=== PATIENT | female | born 1960 | race Caucasian/White ===

== ENCOUNTER 2022-04-10 10:45 | Outpatient (RCR) | payer SELFPAY | END 2023-03-25 11:14 | disposition home or self-care (01) | PROVIDERS: PCP Family Medicine; Visit Provider Orthopaedic Surgery | DX: M25.562 Pain in left knee (principal); Z51.89 Encounter for other specified aftercare | CPT/HCPCS: 97110; 97140 ==

== ENCOUNTER 2022-06-10 08:52 | Day surgery (SDC) | payer SELFPAY ==
[2022-06-10] VITALS (22 sets, daily range): BP systolic 97–171; BP diastolic 52–96; PULSE 48–71; RESP 16–20; TEMP 36.1–36.8; O2SAT 91–99; BMI 37.4
[2022-06-10] MEDS: CELECOXIB 200 MG CAPSULE PO ×2 (09:30→20:58)
[2022-06-10] MEDS: ACETAMINOPHEN 500 MG TABLET 1000 MG PO ×3 (09:30→23:45)
[2022-06-10] MEDS: OXYCODONE (CR) 10 MG TAB.ER.12H PO (09:30)
[2022-06-10] MEDS: LACTATED RINGERS 1000 ML 1,000 ML 100 ML IV ×2 (09:40→12:37)
[2022-06-10] MEDS: SODIUM CHLORIDE 0.9 % (FLUSH) 10 ML SYRINGE IVF (09:40)
[2022-06-10] MEDS: ETHYL CHLORIDE 1 APPLICATION 1 APPLIC TOPICAL (09:40)
--- NOTE | 2022-06-10 09:59 | SUR.PREOP ---
TIME?OUT:?right knee, 10:00 PT/RN/MDA?VERIFICATION?OF?SURGICAL?SITE,?PROCEDURE,?AND?CONSENT OBTAINED?PRIOR?TO?INVASIVE?PROCEDURE.
[2022-06-10] MEDS: fentaNYL 100 MCG/2 ML inj IVP (10:04)
[2022-06-10] MEDS: MIDAZOLAM HCL 1 MG/ML inj IVP (10:04)
--- NOTE | 2022-06-10 11:33 | CRLHL7_ITS ---
For Patients: As a result of the Cures Act, medical imaging exams and procedure reports are released immediately into your electronic medical record. You may view this report before your referring provider. If you have questions, please contact your health care provider. INDICATION: Postoperative total knee arthroplasty, Post operative total knee arthroplasty TECHNIQUE: Knee radiograph 2 views right COMPARISON: None FINDINGS: Bone: No acute fractures or aggressive bone lesions are identified. Joint: The patient is status post a total knee arthroplasty with patellar resurfacing. No significant knee effusion is seen. Soft tissue: Anterior skin, subcutaneous gas and joint gas are present from recent surgery. No radiopaque foreign bodies are seen. IMPRESSION: 1. There is an unremarkable postoperative appearance of the knee arthroplasty. Dictated by: Nando Godinez MD @ 06/10/2022 14:21:15 (Electronically Signed)
--- NOTE | 2022-06-10 11:35 | P.ORPRC_ITS ---
Procedure Note Date of procedure: 06/10/22 Procedure: SURGEON: Jorge Otoole MD RADIO ADJUSTER: Patria Schroeder PA-C PREOPERATIVE DIAGNOSIS: Right knee osteoarthritis POSTOPERATIVE DIAGNOSIS: Right knee osteoarthritis NAME OF OPERATION: Right total knee arthroplasty ANESTHESIA: Spinal ESTIMATED BLOOD LOSS: 0 mL COMPLICATIONS: None SPECIMENS: None DRAINS: None PREOPERATIVE ANTIBIOTICS: Ancef 2 grams IMPLANTS: 1. J&J Attune #6 posterior stabilized femur 2. # 5 fixed-bearing tibia 3. #6 posterior stabilized, 5 mm fixed-bearing polyethylene 4. 35 patella INDICATIONS: The patient is a 62-year-old female with a longstanding history of severe, unrelenting right knee pain secondary to end-stage (grade IV) right knee osteoarthritis. Despite appropriate nonoperative management, including activity modification, anti-inflammatories, oclc-[id number] pain medication, bracing, physical therapy, and injections they continue to have pain and disability. Operative intervention was offered. The risks, benefits and expected outcomes were discussed in detail. These included but were not limited to: Infection, bleeding, injury to blood vessel or nerve, venous thromboembolism. All questions were answered to their satisfaction. Use of an senior executive assistant was necessary throughout the case for patient positioning and safety, soft tissue retraction, and closure. PROCEDURE: Spinal anesthesia was administered. The patient was placed supine on the operating table. The senior executive assistant made sure the patient was positioned appropriately. The lower extremity was prepped and draped in the usual sterile fashion. The limb was exsanguinated with the Buddy bandage. The pneumatic tourniquet was inflated to 300 mmHg. A standard anterior incision was made with the knee in flexion. Subcutaneous dissection was sharply taken through fascial layer #1. Full-thickness medial and lateral flaps were elevated. The senior executive assistant retracted the soft tissues and protected them throughout the case. A standard medial parapatellar approach was made. The patella was everted. The infrapatellar fat pad was preserved. The menisci and cruciate ligaments were sharply d?brided. Marginal osteophytes were d?brided with the rongeur. The drill was used to penetrate the femoral canal. The canal was aspirated and irrigated with pulse lavage. The intramedullary femoral guide was placed for a 5-degree valgus cut, removing 10 mm off the distal femur. The saw was used to make the cut. Whitesides line and the trans epicondylar axis were marked. The femoral sizing guide was pinned onto the distal femur. Three degrees of external rotation nicely parallels the transepicondylar axis. Pins were placed for posterior referencing. The four-in-one cutting guide was pinned onto the distal femur. The anterior, posterior, and chamfer cuts were made. The senior executive assistant protected the collateral ligaments. The box cutting guide was pinned. The box cuts were made. The boxed trial was placed and was an excellent fit. Drill holes for the lugs were made. Attention was then turned to the proximal tibia. The extramedullary tibial guide was placed for a neutral varus/valgus cut with 5 degrees of posterior slope, removing 2 mm based off the medial tibial surface. The senior executive assistant protected the collateral ligaments and the neurovascular bundle. The saw was used to make the cut. Trial components were placed. The knee was nicely balanced in both flexion and extension. Rotation of the tibial component was ma tched to the femur in full extension, matched to our tibial cutting pins, and marked with cautery. The trial components were removed. The tray was placed in appropriate rotation, parallel to our tibial cutting pins. It was pinned by the senior executive assistant and the drill and the punch were used. The tray was removed. The punch was used again. We placed a bone plug in the femoral canal. Attention was then turned to the patella. [place] patellar thickness was 19.5 mm. The lobster claw resection guide was used with the 7.5 mm maribel and a, guide used as an extra maribel. The saw was used to make the cut. Drill holes were made by the senior executive assistant. The trial was placed and was an excellent fit. Cancellous surfaces were irrigated with pulse lavage and thoroughly dried by the senior executive assistant. We cemented the tibial component, then the femoral component. A trial spacer was placed. The knee was brought into full extension. We then cemented the patellar component. Excessive cement was removed. The cement was allowed to harden. Any remaining excessive cement was removed with the osteotome. We impacted the 5 mm polyethylene onto the tibial tray. The knee was taken through a range of motion and was found to be nicely balanced in both flexion and extension. The patella tracks centrally. The senior executive assistant did a three minute dilute Betadine solution soak. The senior executive assistant irrigated the wound with 3 liters of normal saline via pulse lavage. The senior executive assistant reapproximated the extensor mechanism with #1 Vicryl in an interrupted [id number] fashion. The senior executive assistant then ran the extensor mechanism with a #1 PDO Stratafix. The senior executive assistant closed the subcutaneous tissues with a 3-0 Stratafix and the skin with a running 3-0 Stratafix in a subcuticular fashion. Glue was used to seal the skin. The senior executive assistant placed a dry dressing, ELVA stocking, and Polar Care. Sponge and needle counts were correct x2. The patient tolerated the procedure well. There were no apparent complications. They were carefully transferred to the hospital bed and taken to the postanesthesia care unit in satisfactory condition. PLAN: The patient will be mobilized with physical therapy. Aspirin will be used for DVT prophylaxis. They will be discharged to home once medically appropriate.
--- NOTE | 2022-06-10 12:29 | W.ANESCHARGE ---
Anesthesia Charges Start Date/Time Anesthesia Start Date: 06/10/22 Anesthesia Start Time: 10:11 Stop Date/Time Anesthesia Stop Date: 06/10/22 Anesthesia Stop Time: 12:21 Summary Emergency: No
--- NOTE | 2022-06-10 13:31 | W.ANESCHARGE ---
Anesthesia Charges Start Date/Time Anesthesia Start Date: 06/10/22 Anesthesia Start Time: 10:11 Stop Date/Time Anesthesia Stop Date: 06/10/22 Anesthesia Stop Time: 12:21 Summary Emergency: No
--- NOTE | 2022-06-10 13:34 | W.PM.NB ---
Nerve Block Nerve Block Date Seen: 06/10/22 Type of block requested by surgeon for post-operative analgesia: adductor canal Side: right Time out performed: Yes Verification of patient name: Yes Verification of date of : Yes Site marking: site marked Name of person performing procedure: Damion Continuous monitoring Was continuous monitoring of O2 sat, B/P, court recording monitor, recorded every 15 minutes?: Yes Procedure Checklist: sterile prep, needles and gloves Ultrasound guided. Images saved: Yes Medications given in 5ml increments after negative aspiration: Ropivicaine %: 0.5 mL: 20 Needle gauge: 20 Decadron (mg): 10 Precedex (mcg): 25 Patient tolerated procedure well: Yes Additional comments: Needle noted adjacent to nerve Block Charges Block Charge (with Pro Fee): Femoral Nerve Use of Ultrasound Machine for Block: Yes- US Guidance/pain block
--- NOTE | 2022-06-10 13:34 | W.PM.NB ---
Nerve Block Nerve Block Date Seen: 06/10/22 Type of block requested by surgeon for post-operative analgesia: geniculars Side: right Time out performed: Yes Verification of patient name: Yes Verification of date of : Yes Site marking: site marked Name of person performing procedure: Damion Continuous monitoring Was continuous monitoring of O2 sat, B/P, gasoline power shovel operator, recorded every 15 minutes?: Yes Procedure Checklist: sterile prep, needles and gloves Medications given in 5ml increments after negative aspiration: Ropivicaine %: 0.5 mL: 9 Needle gauge: 25 Patient tolerated procedure well: Yes Block Charges Block Charge (with Pro Fee): Genicular Nerve Block Use of Ultrasound Machine for Block: No
[2022-06-10 13:55] LABS: Sodium* 141 mmol/L (135-149)
[2022-06-10] MEDS: HYDROmorphone 0.5 mg/0.5 ml inj IVP ×5 (13:57→23:54)
--- NOTE | 2022-06-10 14:16 | PC.NURSE ---
Pt. up to floor at 1255. Awake, alert, oriented x4. Pt. rated pain at 4/10, 0.5 Dilaudid administered w/relief. Pt's dressing to right knee C/D/I. Cryocuff, bilateral teds, plexi pulses applied. Pt. tolerating ice chips, water, and saltines. Denies any N/V. VSS. Pt. up to chair w/PT at 1415, tolerated activity well.
--- NOTE | 2022-06-10 14:54 | P.IMCN_ITS ---
Date of Consult Consult date: 06/10/22 Primary Care Provider: Minda Ponce MD Consult Narrative Reason for consult: manage asthma, HTN Narrative: Leigh Ann Motta is a 62 year old female who underwent an elective right total knee arthroplasty. She is doing well postoperatively. She has no complaints. Pain in knee is okay at rest. She had some increased pain with going to the bathroom and after therapies, but it was tolerable. She denies CP or SOB. Review of Systems Status of ROS: Reports: 10 or more systems reviewed and unremarkable except as noted in History and below PFSH PFS Medical History (Updated 06/10/22 @ 17:31 by Anisha Zapien MD) Asthma Chest pain Choroidal nevus, left eye Class 1 obesity Depression Diaphragmatic hernia Fibroid Hyperopia Hypertension LFTs abnormal Lung nodule Mild depression Mixed hyperlipidemia Nuclear senile cataract of both eyes Obstructive sleep apnea syndrome Osteoarthritis of right knee Presbyopia Proteinuria Recurrent cold sores Vitamin D deficiency Surgical History (Updated 06/10/22 @ 17:31 by Anisha Zapien MD) History of total left knee replacement (02/11/22) Hx of breast reduction, elective Hx of colonoscopy Hx of tonsillectomy Hx of tubal ligation S/P sclerotherapy of varicose veins S/P total knee arthroplasty S/P ureteral reimplantation Status post left knee replacement Family History (Updated 06/10/22 @ 15:14 by Anisha Zapien MD) Mother Pulmonary hypertension TIA (transient ischemic attack) Atrial fibrillation Hypothyroidism Sleep apnea Brother ALS (amyotrophic lateral sclerosis) Testicular cancer High cholesterol Stroke, Onset Age: 59 Father Heart attack Pacemaker High blood pressure Coronary artery disease Arthritis Hyperlipidemia Aunt Brain aneurysm Social History (Updated 06/10/22 @ 15:09 by Anisha Zapien MD) Narrative: Quit tobacco use 02/12/2009. Denies recreational drug use. Smoking Status: Former smoker What tobacco products do you use: cigarettes Smoking packs per day: 0.5 Smoking cigarettes per day: 10.0 Years smoked: 3 Smoking pack-years: 1.50 Smoking quit date/years: <= 15 years ago Do you use any of these nicotine containing products: None How often do you have a drink containing alcohol: monthly or less Alcohol type: wine How many standard drinks containing alcohol do you have on a typical day: 1 or 2 AUDIT-C Alcohol total score: 1 Non-prescribed substance use: denies use Caffeine: Yes (coffee, 1 cup/morning) Meds Home Medications and Allergies Home Medications Medication Instructions Recorded Confirmed Type multivitamin (Multiple Vitamins 1 tab PO QAM 03/24/22 06/10/22 History tablet) sertraline 50 mg tablet 50 mg PO DAILY 03/24/22 06/10/22 History albuterol sulfate 90 mcg/actuation 2 inh inhalation Q4H PRN 06/10/22 06/10/22 History aerosol inhaler lisinopril 40 mg tablet 40 mg PO DAILY 06/10/22 06/10/22 History omega 1-eok-zlu-fish oil 300 1 cap PO DAILY 06/10/22 06/10/22 History mg-1,000 mg capsule (Fish Oil) Allergies Allergy/AdvReac Type Severity Reaction Status Date / Time diatrizoate meglumine Allergy Severe Hives Verified 06/10/22 09:01 acyclovir Allergy Unknown Tachycardia Verified 04/21/22 14:07 Exam Narrative: Exam Narrative: General: No acute distress. Awake alert oriented x3. HEENT: Normocephalic atraumatic, pupils equally round and reactive to light and accommodation. Oropharynx clear. Mucous membranes are moist. No cervical lymphadenopathy, thyromegaly or carotid bruits. No JVD. Cardiovascular: Regular rate and rhythm. No murmurs, gallops, or rubs. Chest: No increased work of breathing. Clear to auscultation bilaterally. No crackles or wheezes. Abdomen: Bowel sounds present. Soft, nondistended, nontender. No hepatosplenomegaly or masses. Extremities: No edema, no cyanosis or clubbing. Right knee bandage is clean, dry, and intact. Skin: No jaundice, no pallor, no rashes. Const: Vital Signs, click to edit/add: Vital Signs - 24 hr 06/10/22 09:20 06/10/22 10:00 06/10/22 12:16 Temperature 98.2 F 97.4 F L Pulse Rate 66 71 60 Pulse Rate [Right Pulse Oximeter] Respiratory Rate 20 20 16 Blood Pressure 154/81 H 134/90 H 97/55 L Blood Pressure [Le ft Arm] Pulse Oximetry 99 99 96 Oxygen Delivery Me thod Room Air Nasal Cannula Room Air Oxygen Flow Rate 3 06/10/22 12:20 06/10/22 12:25 06/10/22 12:30 Temperature Pulse Rate 51 L 54 L 51 L Pulse Rate [Right Pulse Oximeter] Respiratory Rate 16 16 16 Blood Pressure 97/52 L 101/68 101/68 Blood Pressure [Le ft Arm] Pulse Oximetry 96 95 97 Oxygen Delivery Me thod Room Air Room Air Room Air Oxygen Flow Rate 3 3 06/10/22 12:35 06/10/22 12:40 06/10/22 12:45 Temperature 97.6 F Pulse Rate 52 L 49 L 50 L Pulse Rate [Right Pulse Oximeter] Respiratory Rate 16 16 16 Blood Pressure 120/72 120/73 121/73 Blood Pressure [Le ft Arm] Pulse Oximetry 95 94 98 Oxygen Delivery Me thod Room Air Room Air Room Air Oxygen Flow Rate 3 06/10/22 12:56 06/10/22 12:56 06/10/22 13:30 Temperature 96.9 F L 96.9 F L 97.0 F L Pulse Rate 48 L Pulse Rate [Right Pulse Oximeter] 48 L 52 L Respiratory Rate 16 16 16 Blood Pressure Blood Pressure [Le ft Arm] 125/69 125/69 138/79 Pulse Oximetry 97 95 Oxygen Delivery Me thod Room Air Room Air Room Air Oxygen Flow Rate 06/10/22 13:45 06/10/22 14:00 06/10/22 14:15 Temperature 97.0 F L 98.0 F 98.0 F Pulse Rate Pulse Rate [Right Pulse Oximeter] 56 L 59 L 59 L Respiratory Rate 16 16 16 Blood Pressure Blood Pressure [Le ft Arm] 152/96 H 161/83 H 140/84 H Pulse Oximetry 95 98 98 Oxygen Delivery Me thod Room Air Room Air Room Air Oxygen Flow Rate Labs Labs: BMP 06/10/22 13:31 Sodium 141 Ordering Physician: Jorge Otoole M.D. Date of Service: 06/10/22 Procedure(s): XR knee RT 2V Accession Number(s): [id number] cc: Jorge Otoole M.D.; Minda Ponce M.D.~ For Patients: As a result of the Cures Act, medical imaging exams and procedure reports are released immediately into your electronic medical record. You may view this report before your referring provider. If you have questions, please contact your health care provider. INDICATION: Postoperative total knee arthroplasty, Post operative total knee arthroplasty TECHNIQUE: Knee radiograph 2 views right COMPARISON: None FINDINGS: Bone: No acute fractures or aggressive bone lesions are identified. Joint: The patient is status post a total knee arthroplasty with patellar resurfacing. No significant knee effusion is seen. Soft tissue: Anterior skin, subcutaneous gas and joint gas are present from recent surgery. No radiopaque foreign bodies are seen. IMPRESSION: 1. There is an unremarkable postoperative appearance of the knee arthroplasty. Dictated by: Nando Godinez MD @ 06/10/2022 14:21:15 (Electronically Signed) Assessment and Plan Assessment and plan (1) S/P total knee arthroplasty: Problem comment: 06/10/2022 right Status: Acute (2) Osteoarthritis of right knee: Status: Chronic (3) Hypertension: Status: Chronic (4) Asthma: Status: Chronic (5) Obstructive sleep apnea syndrome: Problem comment: Uses CPAP; 04/24/2014 AHI-12, REM 58 Status: Chronic Plan * Hold lisinopril tomorrow morning. If BP remains elevated, resume. * Anticipate d/c home tomorrow. * VTE prophylaxis with TEDs, SCDs and BID aspirin.
[2022-06-10] MEDS: CEFAZOLIN 2 GM in 0.9 % SODIUM CHLORIDE Mini-bag 100 ML IVPB ×2 (15:56→23:45)
[2022-06-10] MEDS: OXYCODONE 5 MG TABLET PO ×3 (15:56→21:45)
--- NOTE | 2022-06-10 17:47 | PC.NURSE ---
PATIENT PLEASANT AND COOPERATIVE, UP A1 WITH WALKER AND BELT TOLERATING FAIRLY, PATIENT DOES EXPRESS INCREASED PAIN WITH MOVEMENT, PRN OXYCODONE GIVEN WITH SOME RELIEF, CYRO CUFF TO SITE, TOLERATING REGULAR DIET, NO NAUSEA, ABLE TO VOID, DRESSING CDI.
[2022-06-10] MEDS: ASPIRIN 81 MG TABLET EC PO (20:58)
[2022-06-10] MEDS: SENNOSIDES 1 TAB TABLET 2 TAB PO (20:59)
[2022-06-11 03:00] VITALS: BP 154/83; PULSE 85; RESP 16; TEMP 36.6; O2SAT 97
[2022-06-11] MEDS: OXYCODONE 5 MG TABLET PO ×3 (03:27→11:55)
[2022-06-11] MEDS: ACETAMINOPHEN 500 MG TABLET 1000 MG PO ×2 (06:12→11:55)
[2022-06-11 06:28] LABS: Basophils Absolute Auto 0.02 K/uL (0.00-0.30); Basophils Percent Auto 0.2 % (0.0-3.0); Hematocrit 33.5 % (33.0-51.0); Hemoglobin* 10.8 gm/dL (12.0-16.0); Immature Granulocytes Abs Auto 0.01 K/uL (0.00-0.30); Mean Corpuscular HGB Conc 32 gm/dL (32-36); Mean Corpuscular Hemoglobin 28 pg (26-34); Mean Corpuscular Volume 87 fL (80-100); Monocytes Percent Auto 8.1 % (0.0-11.0); Neutrophils Percent Auto 76.6 % (42.0-72.0); Platelet Count* 283 K/uL (140-440); RDW Coefficient of Variation % 13.4 % (11.5-15.5); Red Blood Count 3.87 m/uL (4.00-5.20); White Blood Count* 9.94 K/uL (4.50-11.00)
[2022-06-11 06:42] LABS: Slide Review Reflex No
[2022-06-11 06:43] LABS: INR 1.03 (0.91-1.10); Prothrombin Time 13.9 Seconds
[2022-06-11 06:45] LABS: Potassium* 4.2 mmol/L (3.6-5.1)
[2022-06-11 06:48] LABS: Blood Urea Nitrogen* 22 mg/dL (7-30); Est. Creatinine Clearance* 53.21; Estimated Glomerular Filt Rate 63 ml/min
[2022-06-11] MEDS: CEFAZOLIN 2 GM in 0.9 % SODIUM CHLORIDE Mini-bag 100 ML IVPB (08:28)
[2022-06-11] MEDS: SENNOSIDES 1 TAB TABLET 2 TAB PO (08:31)
[2022-06-11] MEDS: CELECOXIB 200 MG CAPSULE PO (08:32)
[2022-06-11] MEDS: ASPIRIN 81 MG TABLET EC PO (08:32)
[2022-06-11] MEDS: SERTRALINE 50 MG TABLET PO (08:32)
--- NOTE | 2022-06-11 08:37 | PM.ORPN ---
Subjective Subjective Time Seen by Provider: 07:30 Date Seen: 06/11/22 Principal diagnosis: Status post right total knee replacement Interval history: Leigh Ann states she had a good night last night. She had 3-4 hours of sleep. She is planning to discharge today to home Ortho Exam Narrative Exam Narrative: Alert and oriented x3. Patient is in no acute distress. Converses without labored breathing. Hearing is grossly intact. Ambulates with a walker. Examination of the right knee shows dressing is intact. Mild soft tissue edema. Mild effusion. CMS intact right lower extremity. Bilateral calves are soft nontender. Const Vital Signs, click to edit/add: Vital Signs - 24 hr 06/10/22 09:20 06/10/22 10:00 06/10/22 12:16 Temperature 98.2 F 97.4 F L Pulse Rate 66 71 60 Pulse Rate [Right Pulse Oximeter] Respiratory Rate 20 20 16 Blood Pressure 154/81 H 134/90 H 97/55 L Blood Pressure [Left Arm] Pulse Oximetry 99 99 96 Oxygen Delivery Method Room Air Nasal Cannula Room Air Oxygen Flow Rate 3 06/10/22 12:20 06/10/22 12:25 06/10/22 12:30 Temperature Pulse Rate 51 L 54 L 51 L Pulse Rate [Right Pulse Oximeter] Respiratory Rate 16 16 16 Blood Pressure 97/52 L 101/68 101/68 Blood Pressure [Left Arm] Pulse Oximetry 96 95 97 Oxygen Delivery Method Room Air Room Air Room Air Oxygen Flow Rate 3 3 06/10/22 12:35 06/10/22 12:40 06/10/22 12:45 Temperature 97.6 F Pulse Rate 52 L 49 L 50 L Pulse Rate [Right Pulse Oximeter] Respiratory Rate 16 16 16 Blood Pressure 120/72 120/73 121/73 Blood Pressure [Left Arm] Pulse Oximetry 95 94 98 Oxygen Delivery Method Room Air Room Air Room Air Oxygen Flow Rate 3 06/10/22 12:56 06/10/22 12:56 06/10/22 13:30 Temperature 96.9 F L 96.9 F L 97.0 F L Pulse Rate 48 L Pulse Rate [Right Pulse Oximeter] 48 L 52 L Respiratory Rate 16 16 16 Blood Pressure Blood Pressure [Left Arm] 125/69 125/69 138/79 Pulse Oximetry 97 95 Oxygen Delivery Method Room Air Room Air Room Air Oxygen Flow Rate 06/10/22 13:45 06/10/22 14:00 06/10/22 14:15 Temperature 97.0 F L 98.0 F 98.0 F Pulse Rate Pulse Rate [Right Pulse Oximeter] 56 L 59 L 59 L Respiratory Rate 16 16 16 Blood Pressure Blood Pressure [Left Arm] 152/96 H 161/83 H 140/84 H Pulse Oximetry 95 98 98 Oxygen Delivery Method Room Air Room Air Room Air Oxygen Flow Rate 06/10/22 14:45 06/10/22 15:15 06/10/22 16:00 Temperature 97.4 F L 97.4 F L 97.4 F L Pulse Rate Pulse Rate [Right Pulse Oximeter] 66 65 59 L Respiratory Rate 16 16 16 Blood Pressure Blood Pressure [Left Arm] 154/81 H 164/85 H 154/81 H Pulse Oximetry 98 98 94 Oxygen Delivery Method Room Air Room Air Room Air Oxygen Flow Rate 06/10/22 17:00 06/10/22 18:00 06/10/22 19:00 Temperature Pulse Rate Pulse Rate [Right Pulse Oximeter] 66 69 70 Respiratory Rate 18 16 16 Blood Pressure Blood Pressure [Left Arm] 171/86 H 152/82 H 147/86 H Pulse Oximetry 94 91 91 Oxygen Delivery Method Room Air Room Air Room Air Oxygen Flow Rate 06/10/22 19:00 06/10/22 22:55 06/10/22 23:00 Temperature 97.4 F L 97.9 F Pulse Rate Pulse Rate [Right Pulse Oximeter] 70 Respiratory Rate 16 16 16 Blood Pressure Blood Pressure [Left Arm] 147/86 H 164/81 H Pulse Oximetry 92 94 Oxygen Delivery Method Room Air Room Air Oxygen Flow Rate 06/11/22 03:00 Temperature 98 F Pulse Rate Pulse Rate [Right Pulse Oximeter] 85 Respiratory Rate 16 Blood Pressure Blood Pressure [Left Arm] 154/83 H Pulse Oximetry 97 Oxygen Delivery Method Room Air Oxygen Flow Rate Documenting provider has reviewed patient's vital signs: yes Assessment and Plan Assessment and plan (1) S/P total knee arthroplasty: Problem details: 06/10/2022 right Status: Acute Assessment and Plan: Plan for discharge is today to home if they meet discharge criteria, likely today. DVT prophylaxis includes aspirin 81 mg twice daily x1 month, García stockings x1 month may remove for 1 hr per day, frequent ambulation Remove dressing in 1 week. Observe wound and phone Orthopedics with any questions or concerns Return to clinic in 1 week for a wound check Return to clinic in [address] Otoole Minimize narcotic use. Wean off and discontinue soon as possible. Activities as tolerated. No strenuous activity. Outpatient physical therapy as scheduled. Ice and elevate the operative extremity. No restriction on ice. (2) Osteoarthritis of right knee: Status: Chronic (3) Hypertension: Status: Chronic (4) Asthma: Status: Chronic (5) Obstructive sleep apnea syndrome: Problem details: Uses CPAP; 04/24/2014 AHI-12, REM 58 Status: Chronic
[2022-06-11 09:00] VITALS: BP 170/95; PULSE 62; RESP 16; TEMP 36.4; O2SAT 98
--- NOTE | 2022-06-11 09:46 | PM.DS1 ---
DS: Providers Provider Time Seen by Provider: 08:20 Date Seen: 06/11/22 Primary care physician: Minda Ponce MD Consults: 06/10/22 12:56 Consult to Occupational Therapy [CONS] Routine Comment: Reason(s) for OT Consult:: ADLs Prior to Discharge Any Restrictions?:: See Comment Comment: See nursing activity order for any restrictions. Consult to Physical Therapy [CONS] Routine Comment: Ambulate in the villa today. Reason(s) for PT Consult:: TKA TX Protocol POD#0 Any Restrictions?:: See Comment Comment: See nursing activity order for any restrictions. Consult to Physician [CONS] Routine Comment: Consulting Provider: Hospitalists Has provider been notified: No Consult to Can Sterilizer [CONS] Routine Comment: Reason for Consult:: Discharge Planning Needs Attending Physician on discharge: Jorge Otoole MD Date of Discharge: 06/11/22 DS: Diagnosis Discharge Diagnosis (1) S/P total knee arthroplasty: Status: Acute Problem details: 06/10/2022 right (2) Osteoarthritis of right knee: Status: Chronic (3) Obstructive sleep apnea syndrome: Status: Chronic Problem details: Uses CPAP; 04/24/2014 AHI-12, REM 58 (4) Asthma: Status: Chronic (5) Hypertension: Status: Chronic DS: Summary Hospital Course Hospital Course: This is a 62-year-old female who underwent an elective right total knee arthroplasty for severe osteoarthritis. She did well perioperatively and had an unremarkable postoperative course. He is discharged home today in stable condition. Status at Discharge Functional status at discharge: uses cane/walker Overall status at discharge: patient is progressing back to baseline Time Spent with Patient Time attestation: Total time spent providing and/or coordinating discharge services: Exam Narrative: Exam Narrative: General: No acute distress. Awake, alert, oriented x3. No pallor. No jaundice. Affect bright. Oropharynx: Clear. Mucous membranes moist. Cardiovascular: Regular rate and rhythm. No murmurs, gallops, or rubs. Respiratory: Clear to auscultation bilaterally. No wheezes or crackles. Abdomen: Bowel sounds present. Soft, nondistended, nontender. Extremities: Right knee bandage is clean, dry, and intact. No pretibial edema bilaterally. Const: Vital Signs, click to edit/add: Vital Signs - 24 hr 06/10/22 10:00 06/10/22 12:16 06/10/22 12:20 Temperature 97.4 F L Pulse Rate 71 60 51 L Pulse Rate [Right Pulse Oximeter] Respiratory Rate 20 16 16 Blood Pressure 134/90 H 97/55 L 97/52 L Blood Pressure [Le ft Arm] Pulse Oximetry 99 96 96 Oxygen Delivery Me thod Nasal Cannula Room Air Room Air Oxygen Flow Rate 3 3 06/10/22 12:25 06/10/22 12:30 06/10/22 12:35 Temperature Pulse Rate 54 L 51 L 52 L Pulse Rate [Right Pulse Oximeter] Respiratory Rate 16 16 16 Blood Pressure 101/68 101/68 120/72 Blood Pressure [Le ft Arm] Pulse Oximetry 95 97 95 Oxygen Delivery Me thod Room Air Room Air Room Air Oxygen Flow Rate 3 3 06/10/22 12:40 06/10/22 12:45 06/10/22 12:56 Temperature 97.6 F 96.9 F L Pulse Rate 49 L 50 L 48 L Pulse Rate [Right Pulse Oximeter] Respiratory Rate 16 16 16 Blood Pressure 120/73 121/73 Blood Pressure [Le ft Arm] 125/69 Pulse Oximetry 94 98 Oxygen Delivery Me thod Room Air Room Air Room Air Oxygen Flow Rate 06/10/22 12:56 06/10/22 13:30 06/10/22 13:45 Temperature 96.9 F L 97.0 F L 97.0 F L Pulse Rate Pulse Rate [Right Pulse Oximeter] 48 L 52 L 56 L Respiratory Rate 16 16 16 Blood Pressure Blood Pressure [Le ft Arm] 125/69 138/79 152/96 H Pulse Oximetry 97 95 95 Oxygen Delivery Me thod Room Air Room Air Room Air Oxygen Flow Rate 06/10/22 14:00 06/10/22 14:15 06/10/22 14:45 Temperature 98.0 F 98.0 F 97.4 F L Pulse Rate Pulse Rate [Right Pulse Oximeter] 59 L 59 L 66 Respiratory Rate 16 16 16 Blood Pressure Blood Pressure [Le ft Arm] 161/83 H 140/84 H 154/81 H Pulse Oximetry 98 98 98 Oxygen Delivery Me thod Room Air Room Air Room Air Oxygen Flow Rate 06/10/22 15:15 06/10/22 16:00 06/10/22 17:00 Temperature 97.4 F L 97.4 F L Pulse Rate Pulse Rate [Right Pulse Oximeter] 65 59 L 66 Respiratory Rate 16 16 18 Blood Pressure Blood Pressure [Le ft Arm] 164/85 H 154/81 H 171/86 H Pulse Oximetry 98 94 94 Oxygen Delivery Me thod Room Air Room Air Room Air Oxygen Flow Rate 06/10/22 18:00 06/10/22 19:00 06/10/22 19:00 Temperature 97.4 F L Pulse Rate Pulse Rate [Right Pulse Oximeter] 69 70 70 Respiratory Rate 16 16 16 Blood Pressure Blood Pressure [Le ft Arm] 152/82 H 147/86 H 147/86 H Pulse Oximetry 91 91 92 Oxygen Delivery Me thod Room Air Room Air Room Air Oxygen Flow Rate 06/10/22 22:55 06/10/22 23:00 06/11/22 03:00 Temperature 97.9 F 98 F Pulse Rate Pulse Rate [Right Pulse Oximeter] 85 Respiratory Rate 16 16 16 Blood Pressure Blood Pressure [Le ft Arm] 164/81 H 154/83 H Pulse Oximetry 94 97 Oxygen Delivery Me thod Room Air Room Air Oxygen Flow Rate DS: Data Data Completed and Pending Completed studies during hospitalization: Ordering Physician: Jorge Otoole M.D. Date of Service: 06/10/22 Procedure(s): XR knee RT 2V Accession Number(s): [id number] cc: Jorge Otoole M.D.; Minda Ponce M.D.~ For Patients: As a result of the Cures Act, medical imaging exams and procedure reports are released immediately into your electronic medical record. You may view this report before your referring provider. If you have questions, please contact your health care provider. INDICATION: Postoperative total knee arthroplasty, Post operative total knee arthroplasty TECHNIQUE: Knee radiograph 2 views right COMPARISON: None FINDINGS: Bone: No acute fractures or aggressive bone lesions are identified. Joint: The patient is status post a total knee arthroplasty with patellar resurfacing. No significant knee effusion is seen. Soft tissue: Anterior skin, subcutaneous gas and joint gas are present from recent surgery. No radiopaque foreign bodies are seen. IMPRESSION: 1. There is an unremarkable postoperative appearance of the knee arthroplasty. Dictated by: Nando Godinez MD @ 06/10/2022 14:21:15 (Electronically Signed) Labs on day of discharge: Labs from last 24 hours 10/01/2606/11/22 06/11/22 05:44 05:44 05:44 WBC 9.94 RBC 3.87 L Hgb 10.8 L Hct 33.5 MCV 87 MCH 28 MCHC 32 RDW Coeff of Tone 13.4 Plt Count 283 Neut % (Auto) 76.6 H Lymph % (Auto) 15.0 L [place] % (Auto) 8.1 Eos % (Auto) 0.0 Baso % (Auto) 0.2 Neut # (Auto) 7.60 H Lymph # (Auto) 1.50 [place] # (Auto) 0.80 Eos # (Auto) 0.00 Baso # (Auto) 0.02 Abs Immat Gran (auto) 0.01 INR 1.03 Sodium Potassium 4.2 BUN 22 Creatinine 1.0 Estimated Creat Clear 53.21 Estimated GFR 63 06/10/22 13:31 WBC RBC Hgb Hct MCV MCH MCHC RDW Coeff of Tone Plt Count Neut % (Auto) Lymph % (Auto) [place] % (Auto) Eos % (Auto) Baso % (Auto) Neut # (Auto) Lymph # (Auto) [place] # (Auto) Eos # (Auto) Baso # (Auto) Abs Immat Gran (auto) INR Sodium 141 Potassium BUN Creatinine Estimated Creat Clear Estimated GFR Discharge Plan Discharge Disposition: Home, Self-Care Discharging Surgeon: Jorge Otoole Follow-Up Appointment: One week Prescriptions: New acetaminophen 500 mg Tablet 500 - 1,000 mg PO Q6H MDD 4000 mg per day PRN (Reason: pain) Qty: 100 0RF aspirin 81 mg Tablet,Delayed Release (Dr/Ec) 81 mg PO BID 30 Days Qty: 60 0RF Rx Instructions: For DVT prophylaxis oxycodone 5 mg Tablet 2.5 - 5 mg PO Q4-6H PRN (Reason: Pain) Qty: 42 0RF Rx Instructions: Minimize. Discontinue soon as possible sennosides [Senna Lax] 8.6 mg Tablet 17.2 mg PO BID PRNQty: 100 0RF Rx Instructions: For narcotic related constipation Continued sertraline 50 mg tablet 50 mg PO DAILY multivitamin [Multiple Vitamins] Tablet 1 tab PO QAM lisinopril 40 mg tablet 40 mg PO DAILY albuterol sulfate 90 mcg/actuation HFA aerosol inhaler 2 inh inhalation Q4H PRN omega 3-kod-brf-fish oil [Fish Oil] 300-1,000 mg capsule 1 cap PO DAILY Activity Level: Activity as Tolerated and No strenuous activity Activity Detail: Keep dressing on for 1 week. Dressing is waterproof. May shower. Surgical glue covers the wound. Attend outpatient physical therapy if scheduled. Ice and elevate operative extremity without restriction. Wear compression stockings for 1 month post surgery. May remove for 1 hour per day. Ambulate every hour throughout the day. Do not drive while taking narcotic pain medication. Do not drink alcohol while taking narcotic pain medication. May drive when safe to do so and have full function of the extremities, this may take 6 weeks or more. Notify Orthopedics with any questions or concerns. ([phone]) Discharge Diet: Regular Forms: Work/Release Restrictions Follow-up: Alexsandra Francis, PA-C [Physician Print Color Operator] - 06/18/22 10:00 am ([facility] - [place] office) Minda Ponce MD [Primary Care Provider] - Discharge Orders: Discharge Order (Routine); Ordered 06/11/22 Ordered By: Alexsandra Francis
--- NOTE | 2022-06-11 10:00 | PC.SOCIAL ---
Met with pt in room. Pt states that she has her mother that will be staying with her during recovery. Pt also has friends and neighbors that are willing to assist as needed. Pt states that she has a 1 level home and will be able to get around well in the home. Pt also states that she currently receives meals on wheels. Pt informs that she had a previous surgery back in February and recovered well, so she is hoping that this recovery will go well also. Informed pt that if she is in need of assistance she may reach the [facility] Social Work Department.
[2022-06-11 11:50] VITALS: BP 121/73; PULSE 48; RESP 16; TEMP 36.4
[2022-06-11 12:21] VITALS: BP 174/75; RESP 16
[2022-06-11] MEDS: HYDROmorphone 0.5 mg/0.5 ml inj IVP (12:42)
[2022-06-11] MEDS: hydrOXYzine pamoate 25 MG CAPSULE 50 MG PO (13:45)
[2022-06-11 14:05] LABS: Sodium* 137 mmol/L (135-149)
--- NOTE | 2022-06-11 14:55 | PC.NURSE ---
SHIFT REPORT: PATIENT PLEASANT AND COOPERATIVE WITH STAFFING, UP A1 WALKER AND BELT TOLERATING FAIRLY, DOES EXPRESS SOME INCREASED PAIN WITH MOVEMENT, THIS MORNING INITIALLY RATING PAIN IN RIGHT KNEE 3/10 AT REST COMFORTABLE AND PRN OXYCODONE GIVEN, WORKED WITH PT AND OT, THEN PATIENT EXPRESSED HORRIBLE PAIN IS SEEN CRYING IN ROOM AND VERY RESTLESS, GAVE TYLENOL AND OXYCODONE WITH MINIMAL RELIEF ALONG WITH POSITION CHANGE, CYRO CUFF ON AT REST, DISTRACTION WELL WITH MINIMAL RELIEF, PRN DILAUDID GIVEN AND PATIENT WAS ABLE TO GET SOME RELIEF, PA PHONED AND UPDATED NO REDNESS ON LEG, NO CALF TENDERNESS, PAIN MOSTLY IN RIGHT UPPER THIGH AND KNEE BUT DOES EXPEND TO ANKLE/FOOT, ONCE VISTRAL GIVEN WELL WITH RELIEF, PATIENT DAUGHTER IN LAW PRESENT WELL AND VERY SUPPORTIVE, PATIENT EXPRESSING PAIN RELIEF AND VERBALIZED WANTED TO TRY GOING HOME, TOLERATING REGULAR DIET NO NAUSEA, DRESSING TO RIGHT KNEE CDI, PATIENT VERBALIZED UNDERSTANDING OF DISCHARGE INFORMATION AND HAD NO FURTHER QUESTIONS AT THIS TIME, IV REMOVED, LEFT WITH DTR IN LAW AROUND 1500.
== END 2022-06-11 15:13 | disposition home or self-care (01) ==
LOC: OR 08:53 → MEDSURG 08:58
PROVIDERS: PCP Family Medicine; Visit Provider Orthopaedic Surgery
PROC: (CPT 27447; principal; 2022-06-10 11:00)
DX: M17.11 Unilateral primary osteoarthritis, right knee (principal); I10 Essential (primary) hypertension; J45.909 Unspecified asthma, uncomplicated; G47.33 Obstructive sleep apnea (adult) (pediatric); E66.9 Obesity, unspecified; Z68.37 Body mass index [BMI] 37.0-37.9, adult; E78.2 Mixed hyperlipidemia; E55.9 Vitamin D deficiency, unspecified; E03.9 Hypothyroidism, unspecified; F32.A Depression, unspecified
CPT/HCPCS: 27447; 01402; 36415; 64447; 64454; 73560; 76942; 82565; 84132; 84295; 84520; 85025; 85610; 97110; 97116; 97161; 97165; 97530; A9270; C1776; J0690; J1100; J1170; J2250; J2405; J2704; J3010; J7120

== ENCOUNTER 2022-07-24 11:15 | Outpatient (RCR) | payer SELFPAY | END 2022-07-24 12:10 | disposition home or self-care (01) | PROVIDERS: PCP Family Medicine; Visit Provider Orthopaedic Surgery | DX: M17.11 Unilateral primary osteoarthritis, right knee (principal); Z51.89 Encounter for other specified aftercare | CPT/HCPCS: 97110; 97162; J1100; J2795 ==